=== PATIENT | female | born 1965 | race Caucasian/White ===

== ENCOUNTER 2018-06-06 12:07 | Observation (INO) ==
[2018-06-06] MEDS ORDERED: ONDANSETRON HCL/PF 2 MG/ML VIAL IV ONE (12:17)
[2018-06-06] MEDS ORDERED: MORPHINE SULFATE 2 MG/ML DISP.SYRIN IV ONE ×2 (12:18→14:21)
[2018-06-06 12:36] LABS: Hemoglobin 14.4 gm/dL (12.5-16.0); Mean Cell Volume 92.1 fl (78-100); Mean Corpuscular Hemoglobin 30.8 pg (27-31); Mean Corpuscular Hgb Conc 33.5 g/dl (32-36); Mean Platelet Volume 9.2 fl (8-12.5); Neutrophil # 9.1 K/mm3 (1.3-6.0); Platelet Count 376 K/mm3 (150-450); Red Blood Count 4.67 M/mm3 (4.2-5.4); White Blood Count 12.8 K/mm3 (4.0-10.5)
--- NOTE | 2018-06-06 12:40 | ERNOTE ---
Abdominal HPI - Narrative Date of Service: 06/06/18 - General Chief Complaint: Abdominal Pain Time Seen by Provider: 06/06/18 12:08 Source: patient Exam Limitations: no limitations - Immun/Allergies/Home Medications Immunizatons: IMMUNIZATION HX Immunizations Up to Date Yes History of Influenza Vaccine Yes Hx Pneumococcal Vaccination No Allergies/Adverse Reactions: Allergies lisinopril Allergy (Mild, Verified 06/06/18 12:19) Hives Home Medications: HOME MEDICATIONS atenolol 25 mg tablet 25 mg PO DAILY #30 tab 12/25/17 [Last Taken Unknown] hydrochlorothiazide 50 mg tablet 50 mg PO DAILY #90 tab 02/25/18 [Last Taken 06/06/18] acetaminophen 300 mg-codeine 30 mg tablet 1 tab PO Q6H PRN #30 tab 03/27/18 [Last Taken Unknown] alprazolam 0.25 mg tablet 0.25 mg PO BID-TID PRN #30 tab 04/14/18 [Last Taken 06/05/18] Cyclobenzaprine HCl 10 mg PO HS PRN 06/06/18 [Last Taken 06/05/18] - Pain Score Pain Score #1 Pain Score: 8 Abdominal Pain Onset Location: epigastric, suprapubic Pain Radiation: back - History of Present Illness Narrative: The patient is a 53 year old female who presents for abdominal pain which has been present since last evening. There are associated symptoms of abdominal distention and nausea. The patient reports epigastric and suprapubic pain, 8/10. There are no alleviating factors. There are no aggravating factors. Previous treatments have included: Magnesium Citrate and Tylenol #3 without improvement. The past medical history includes: HTN and constipation. The social history is positive for former smoker and social alcohol use. The patient has had no ill contacts. Patient denies history of colonoscopy. Patient states it had been 1 week prior to last BM so she took Mag Citrate on Saturday with bowel movement in the evening. Patient states yesterday she began having abrupt pain with intermittent increased severity of pain. Timing: constant, intermittent - severity Quality: severe, aching, cramping Activities at Onset: none Modifying Factors - (Worsens): Present: coughing, movement Associated Symptoms: Present: back pain, nausea, shortness of breath, swelling/mass in abdomen. Absent: diarrhea-gross blood, diarrhea-mucous, fever/chills, vomiting Prior Abdominal Problems: Present: none Review of Systems - Review of Systems Constitutional: Present: fatigue. Absent: fever, chills EYE: Present: no symptoms reported ENT: Present: no symptoms reported. Absent: ear pain, nasal drainage, sore throat Respiratory: Present: shortness of breath. Absent: cough Cardiology: Present: no symptoms reported. Absent: chest pain Gastrointestinal/Abdominal: Present: nausea, constipation, abdominal pain. Absent: vomiting, diarrhea Genitourinary: Present: no symptoms reported. Absent: frequency, dysuria, decreased urinary output Musculoskeletal: Present: back pain Skin: Present: no symptoms reported. Absent: rash Neurological: Present: no symptoms reported Endocrine: Present: no symptoms reported Hematologic/Lymphatic: Present: no symptoms reported Psych: Present: no symptoms reported All Other Systems: All systems neg except as marked Medical History (Last Reviewed 06/06/18 @ 12:37 by OREN Nur) Constipation Onset Date: Unknown Hypertension Onset Date: Unknown Fracture of leg Onset Date: Unknown right leg fracture Surgical History: Surgical History (Last Reviewed 06/06/18 @ 12:37 by OREN Nur) History of section Onset Date: Unknown History of right knee surgery Onset Date: Unknown History of tonsillectomy Onset Date: Unknown Family History: Family History (Last Reviewed 06/06/18 @ 12:37 by OREN Nur) Father Cancer lung Mother Hypertension Social History: Preferred Language Portuguese Do you have any latter day or No cultural preference? Smoking Status Former smoker Have you smoked in the past 12 No months Do you dip or chew tobacco No Alcohol Use occasionally Drug Use none (Last Updated 02/03/18 @ 15:53 by Melissa Hernandez MD) No Social History Section defined Physical Exam - Physical Exam General Appearance: Present: wd/wn, alert, moderate distress Head Exam: Present: normal inspection, no evidence of injury Eye Exam: Normal inspection: bilateral Ears, Nose, Throat: Present: normal ENT inspection, normal pharynx Neck: Present: normal inspection, nontender Respiratory: Present: no respiratory distress, normal breath sounds, no accessory muscle use, lungs clear Cardiovascular/Chest: Present: regular rate, rhythm, no murmur Gastrointestinal/Abdominal: Present: soft, no organomegaly, tenderness - epigastric, LUQ, suprapubic, abnormal bowel sounds - hyperactive, distended - diffuse. Absent: guarding, mass Neurological Exam: Present: alert, oriented, normal mood/affect Skin Exam: Present: normal color, warm/dry Progress - Date and Time Seen: Date and Time: 06/06/18 13:23 Discussed results with patient, will proceed with CT abdomen and pelvis. 06/06/18 15:27 Discussed results with , will present to evaluate patient due to acute appendicitis with abscess and ileus. - Results and Orders Patient's Lab Results:: I have reviewed the patient's lab results. - Vital Signs Patient's Vital Signs:: I have reviewed the patient's vital signs. Vital Signs: Vital Signs 06/06/18 12:13 Temperature 35.5 C L Pulse Rate 80 Respiratory Rate 16 Blood Pressure 154/118 H O2 Sat by Pulse Oximetry 99 - X-Ray X-Ray #1 X-Ray: abdomen Interpretation: Reviewed by me X-ray Comments: X-RAY REPORT ~[id number] RAD/Abdomen Flat W/ Upright *~ Exam Date: 06/06/2018 12:17 Ordering Physician: Elva LOTT HISTORY: Abdominal Pain Additional history from technologist: abdominal pain started in the night; bloating; back and abdominal pain; takes mirilax daily; no prior abdominal surgeries TECHNIQUE: AP upright and supine views of the abdomen were obtained, total of 4 images. COMPARISONS: None available. FINDINGS: Abdomen Flat W/ Upright *: No subdiaphragmatic free air. There is distention of the small and large bowel loops diffusely throughout the abdomen. Scattered differential air-fluid levels are noted. No definite pathologic calcifications apparent. There is a T-shaped radiodensity within the pelvis most likely an IUD. Osseous structures are intact. IMPRESSION: Abnormal but nonspecific bowel gas pattern. Electronically signed by Carmen Jimenez M.D.. - CT/Ultrasound CT/Ultrasound Narrative: X-RAY REPORT ~[id number] CT/CT Abdomen/Pelvis W/C *~ Exam Date: 06/06/2018 13:22 Ordering Physician: Elva LOTT HISTORY/INDICATION: abdominal pain, distention Additional history from technologist: PT STATES SHE HAS HAD SHARP ABD PAINS X 1 DAY. BLOATING TECHNIQUE: Contrast enhanced CT images of the abdomen during portal venous phase obtained. Excretory phase images of the abdomen and pelvis were also obtained. Coronal reconstructions were also submitted. Oral contrast material was given. Dose reduction techniques using the adjustment of the mA and/or kV according to patient size and/or use of AEC or iterative reconstruction were used in the acqu isition of this exam. COMPARISON: None available. CT Abdomen/Pelvis W/C * ABDOMEN: Lungs: Mild dependent atelectasis present. Visualized portions of the heart grossly normal. Liver: No focal mass or intrahepatic ductal dilation apparent. Gallbladder: The gallbladder appears to be grossly unremarkable. Noncalcified gallstones would be difficult to exclude, and an ultrasound of the gallbladder should be considered if there is a concern for cholecystitis or biliary colic. Pancreas: The pancreas appears to be normal in appearance. Spleen: The spleen is unremarkable. Adrenal glands: Unremarkable without focal finding. Kidneys: Normal appearance without focal mass or hydronephrosis. There is a tiny subcentimeter cortical hypodensity in the interpolar region of the right kidney most likely a tiny cyst. Aorta: Mild calcified atherosclerotic plaques noted. Largest transaxial diameter of the infrarenal segment is 1.7 cm. Retroperitoneum: No pathologic size lymphadenopathy or mass within the retroperitoneum is seen. Stomach: Unopacified and nondistended stomach grossly unremarkable. Cannot exclude small mucosal lesion or potential gastritis. Clinical correlation is recommended. Small bowel: There is distention of the proximal small bowel loops, without definite signs of a focal transition point. The distal small bowel is reached by enteric contrast. Overall pattern suggestive of ileus. Colon: The colon appears to be grossly unremarkable. There is a blind-ending tubular structure seen on series 4 image [id number] in the right lower quadrant, which appears to be distended with fluid with surrounding inflammatory changes. Adjacent to the tip of this structure, on series 4 image 48, there may be a tiny 13 x 9 mm fluid collection (see also series 5 image 19). There is no definite signs of extraluminal gas. Note that the cecum is somewhat high and more midline in position, and not in the typical right lower quadrant, which may be developmental/congenital. Abdominal wall: Unremarkable without focal mass or hernia. No evidence for intraperitoneal free air. PELVIS: Contrast-filled portions of the urinary bladder demonstrates no focal finding. No definite signs of pelvic lymphadenopathy or masses are noted. Patient has a T-shaped IUD centrally located within the uterus. No evidence of free pelvic fluid noted. Bones: Osseous structures appear intact without obvious destructive changes. Patient has old right-sided rib fractures. IMPRESSION: 1. CT findings concerning for acute appendicitis, with a potential 13 mm tiny abscess adjacent to the tip of the abnormal appendix. Atypical location of the cecum as above. 2. Additional comments are as above. Ordering provider OREN Nur was informed regarding the above results by telephone on 06/06/2018 3:23 PM. Electronically signed by Carmen Jimenez M.D.. - Progress/Reassessment Chief Complaint: Abdominal Pain Departure Clinical Impression: Acute appendicitis Qualifiers: Acute appendicitis type: with generalized peritonitis Appendicitis gangrene presence: without gangrene Appendicitis perforation presence: unspecified whether perforation present Appendicitis abscess presence: with abscess Qualified Code(s): K35.21 - Acute appendicitis with generalized peritonitis, with abscess - Departure Disposition: Still a patient Condition: Fair Referrals: Melissa Hernandez MD [Primary Care Provider] -
[2018-06-06 12:51] LABS: Albumin * 4.2 gm/dl (3.4-5.0); Anion Gap 13.6 mmol/L (6.8-13.8); BUN/Creatinine Ratio 21.7 (9.0-21.6); Bilirubin, Total 0.7 mg/dL (0.0-1.1); Ca. Corrected For Albumin 9.4 mg/dL (8.4-10.2); Calcium * 9.9 mg/dL (7.9-10.9); Carbon Dioxide 25.7 mmol/L (24-32.6); Potassium 3.3 mmol/L (3.4-4.6); Total Protein 8.3 gm/dL (6.2-8.2)
[2018-06-06 13:04] LABS: Urine Bilirubin Negative (NEGATIVE); Urine Blood 50 /ul (NEGATIVE); Urine Ketone 5 mg/dL (NEGATIVE); Urine Nitrite Negative (NEGATIVE); Urine Protein Negative (NEGATIVE); Urine Specific Gravity 1.015 SP.GR. (1.005-1.010); Urine Urobilinogen Normal (NORMAL)
[2018-06-06 13:14] LABS: Urine Appearance Clear (CLEAR); Urine Bacteria None Seen; Urine Color Yellow; Urine RBC None Seen /hpf (0-5); Urine WBC None Seen /hpf (0-5)
[2018-06-06] MEDS ORDERED: DIATRIZOATE MEGLUMINE, SODIUM 30 ML BTL PO ONE (13:22)
[2018-06-06] MEDS ORDERED: CEFOXITIN SODIUM 1 GM in DEXTROSE 5 % IN WATER 100 ML IV PRN ×2 (15:50)
--- NOTE | 2018-06-06 16:04 | HP ---
Chief Complaint - Chief Complaint Date of Service: 06/06/18 Time of Service: 16:00 Chief Complaint: Acute appendicitis History of Present Illness: Renetta is a very pleasant 53-year-old female who developed abdominal pain last night around 10 PM. Her pain is diffuse throughout the abdomen. She came into the emergency room and was evaluated. He had a CT scan which demonstrated acute appendicitis with a small perforation. She has a chronic history of constipation. She took a bottle of mag citrate earlier this week, this produced a small bowel movement. She had some relief with this. However, the pain started last night at 10 PM is different than her constipation pain. Medical History (Last Reviewed 06/06/18 @ 12:37 by OREN Nur) Constipation Onset Date: Unknown Hypertension Onset Date: Unknown Fracture of leg Onset Date: Unknown right leg fracture Surgical History: Surgical History (Last Reviewed 06/06/18 @ 12:37 by OREN Nur) History of section Onset Date: Unknown History of right knee surgery Onset Date: Unknown History of tonsillectomy Onset Date: Unknown Family History: Family History (Last Reviewed 06/06/18 @ 12:37 by OREN Nur) Father Cancer lung Mother Hypertension Social History: Preferred Language Greek Do you have any caodaism or No cultural preference? Smoking Status Former smoker Have you smoked in the past 12 No months Do you dip or chew tobacco No Alcohol Use occasionally Drug Use none (Last Updated 02/03/18 @ 15:53 by Melissa Hernandez MD) No Social History Section defined Review Of Systems (GEN) - Review of Systems Generalized/Overall Review: Present: Malaise EENTM: Present: No Symptoms Reported Respiratory: Present: No Symptoms Reported Cardiac: Present: No Symptoms Reported Abdominal: Present: Nausea, Abdominal Pain, Constipation Genitourinary: Present: No Symptoms Reported Musculoskeletal: Present: No Symptoms Reported Neurological: Present: No Symptoms Reported Skin: Present: No Symptoms Reported Endocrine: Present: No Symptoms Reported Immunizations: IMMUNIZATION HX Immunizations Up to Date Yes History of Influenza Vaccine Yes Hx Pneumococcal Vaccination No Allergies/Adverse Reactions: Allergies Allergy/AdvReac Type Severity Reaction Status Date / Time lisinopril Allergy Mild Hives Verified 06/06/18 12:19 Home Medications: HOME MEDICATIONS atenolol 25 mg tablet 25 mg PO DAILY #30 tab 12/25/17 [Last Taken Unknown] hydrochlorothiazide 50 mg tablet 50 mg PO DAILY #90 tab 02/25/18 [Last Taken 06/06/18] acetaminophen 300 mg-codeine 30 mg tablet 1 tab PO Q6H PRN #30 tab 03/27/18 [Last Taken Unknown] alprazolam 0.25 mg tablet 0.25 mg PO BID-TID PRN #30 tab 04/14/18 [Last Taken 06/05/18] Cyclobenzaprine HCl 10 mg PO HS PRN 06/06/18 [Last Taken 06/05/18] Exam - Exam Vital Signs: Vital Signs - Last Taken Temp 35.5 C L 06/06/18 12:13 Pulse 76 06/06/18 13:45 Resp 16 06/06/18 13:45 BP 144/94 H 06/06/18 13:45 Pulse Ox 98 06/06/18 13:45 Constitutional: Present: Alert, Oriented x3, Cooperative ENT Exam: Present: hearing grossly normal Neck: Present: supple Back Exam: Present: normal inspection Breasts: Present: Exam deferred Respiratory: Present: lungs clear, normal breath sounds, no respiratory distress, no accessory muscle use Cardiovascular/Chest: Present: regular rate, rhythm Abdomen: Present: Normal bowel sounds, soft, tender /Rectal: Present: Exam deferred Extremity: Present: normal range of motion Skin Exam: Present: normal color Neurologic: Present: funds transfer clerk II-XII nml as tested Appearance: Present: appropriate appearance Eye contact: Present: cooperative, good eye contact Thoughts: Present: normal thought pattern Diagnostic Studies: Abnormal Lab Results 06/06/18 06/06/18 06/06/18 Range/Units 12:30 12:30 12:57 WBC 12.8 H (4.0-10.5) K/mm3 Neutrophils # 9.1 H (1.3-6.0) K/mm3 Potassium 3.3 L (3.4-4.6) mmol/L BUN/Creatinine Ratio 21.7 H (9.0-21.6) Total Protein 8.3 H (6.2-8.2) gm/dL Urine Blood 50 H (NEGATIVE) /ul Laboratory Results WBC 12.8 K/mm3 (4.0-10.5) H 06/06/18 12:30 RBC 4.67 M/mm3 (4.2-5.4) 06/06/18 12:30 Hgb 14.4 gm/dL (12.5-16.0) 06/06/18 12:30 Hct 43.0 % (37.0-47.0) 06/06/18 12:30 MCV 92.1 fl (78-100) 06/06/18 12:30 MCH 30.8 pg (27-31) 06/06/18 12: MCHC 33.5 g/dl (32-36) 06/06/18 12:30 RDW 13.0 % (11.5-14.0) 06/06/18 12:30 Plt Count 376 K/mm3 (150-450) 06/06/18 12: MPV 9.2 fl (8-12.5) 06/06/18 12:30 Immature Gran % (Auto) 0.20 % (0.001-0.429) 06/06/18 12: Immature Gran # (Auto) 0.03 K/mm3 (0.000-0.0310) 06/06/18 12:30 Neutrophils % 71.0 % (42-75.0) 06/06/18 12:30 Lymphocytes % 20.4 % (20-51) 06/06/18 12:30 Monocytes % 7.8 % (0.0-9) 06/06/18 12: Eosinophils % 0.3 % (0.0-3.0) 06/06/18 12: Basophils % 0.3 % (0.0-1.0) 06/06/18 12: Nucleated RBC % 0.0 k/mm3 (0-1) 06/06/18 12:30 Neutrophils # 9.1 K/mm3 (1.3-6.0) H 06/06/18 12:30 Lymphocytes # 2.62 k/mm3 (1.5-3.5) 06/06/18 12:30 Monocytes # 1.0 k/mm3 (0.0-1.0) 06/06/18 12: Eosinophils # 0.0 k/mm3 (0.0-0.7) 06/06/18 12: Absolute Basophils 0.0 k/mm3 (0.0-0.1) 06/06/18 12:30 ESR 4 mm/hr (0-15) 06/06/18 12:30 Sodium 133 mmol/L (132-142) 06/06/18 12:30 Plasma Sodium 133 mmol/L (130-142) 06/06/18 12:30 Potassium 3.3 mmol/L (3.4-4.6) L 06/06/18 12:30 Chloride 97 mmol/L (97-106) 06/06/18 12:30 Carbon Dioxide 25.7 mmol/L (24-32.6) 06/06/18 12:30 Anion Gap 13.6 mmol/L (6.8-13.8) 06/06/18 12:30 BUN 15 mg/dL (3-23) 06/06/18 12:30 Creatinine 0.69 mg/dL (0.4-1.4) 06/06/18 12:30 Est GFR (Non-Af Amer) 94 mL/min (60-130) 06/06/18 12:30 BUN/Creatinine Ratio 21.7 (9.0-21.6) H 06/06/18 12:30 Random Glucose 87 mg/dL (70-110) 06/06/18 12:30 Calcium 9.9 mg/dL (7.9-10.9) 06/06/18 12:30 Calcium Adj for Albumin 9.4 mg/dL (8.4-10.2) 06/06/18 12:30 Total Bilirubin 0.7 mg/dL (0.0-1.1) 06/06/18 12:30 AST 35 U/L (0-48) 06/06/18 12:30 ALT 46 U/L (19-67) 06/06/18 12:30 Alkaline Phosphatase 110 U/L (50-170) 06/06/18 12:30 C-Reactive Prot, Quant Less than 0.2 mg/dL (0.0-0.9) 06/06/18 12:30 Total Protein 8.3 gm/dL (6.2-8.2) H 06/06/18 12:30 Albumin 4.2 gm/dl (3.4-5.0) 06/06/18 12:30 Amylase 56 U/L (25-115) 06/06/18 12:30 Lipase 123 U/L (73-393) 06/06/18 12:30 Serum HCG, Qual Negative (NEGATIVE) 06/06/18 12:30 Urine Color Yellow 06/06/18 12:57 Urine Appearance Clear (CLEAR) 06/06/18 12:57 Urine pH 6.0 pH (5.0-7.0) 06/06/18 12:57 Ur Specific [place] 1.015 SP.GR. (1.005-1.010) 06/06/18 12:57 Urine Protein Negative mg/dL (NEGATIVE) 06/06/18 12:57 Urine Glucose (UA) Negative mg/dL (NEGATIVE) 06/06/18 12:57 Urine Ketones 5 mg/dL (NEGATIVE) 06/06/18 12:57 Urine Blood 50 /ul (NEGATIVE) H 06/06/18 12:57 Urine Nitrate Negative (NEGATIVE) 06/06/18 12:57 Urine Bilirubin Negative mg/dl (NEGATIVE) 06/06/18 12:57 Urine Urobilinogen Normal EU/dl (NORMAL) 06/06/18 12:57 Ur Leukocyte Esterase Negative /ul (NEGATIVE) 06/06/18 12:57 Urine RBC None seen /hpf (0-5) 06/06/18 12:57 Urine WBC None seen /hpf (0-5) 06/06/18 12:57 Ur Epithelial Cells None seen /hpf (0-5) 06/06/18 12:57 Urine Bacteria None seen (NONE) 06/06/18 12:57 Urine Culture Comments No culture indicated 06/06/18 12:57 Assessment/Plan - Assessment/Plan (1) Acute appendicitis Problem: Acute Plan - Plan Plan: Patient will be taken to the operating room emergently for laparoscopic appendectomy. She'll be given a dose of antibiotics in the emergency room. Risks and benefits of the procedure were discussed with the patient including bleeding, infection, damage to other organs, and need for reoperation. She voices understanding. She would like to proceed. Thank you for allowing me to participate in the care of your patient.
--- NOTE | 2018-06-06 16:19 | ANES ---
Anesthesia Pre Procedure Eval Vitals/Labs: Last Vital Signs Temp 35.5 C L 06/06/18 12:13 Pulse 76 06/06/18 13:45 Resp 16 06/06/18 13:45 BP 144/94 H 06/06/18 13:45 Pulse Ox 98 06/06/18 13:45 HOME MEDICATIONS atenolol 25 mg tablet 25 mg PO DAILY #30 tab 12/25/17 [Last Taken Unknown] hydrochlorothiazide 50 mg tablet 50 mg PO DAILY #90 tab 02/25/18 [Last Taken 06/06/18] acetaminophen 300 mg-codeine 30 mg tablet 1 tab PO Q6H PRN #30 tab 03/27/18 [Last Taken Unknown] alprazolam 0.25 mg tablet 0.25 mg PO BID-TID PRN #30 tab 04/14/18 [Last Taken 06/05/18] Cyclobenzaprine HCl 10 mg PO HS PRN 06/06/18 [Last Taken 06/05/18] Allergies/Adverse Reactions: Allergies Allergy/AdvReac Type Severity Reaction Status Date / Time lisinopril Allergy Mild Hives Verified 06/06/18 12:19 - Planned Procedure Planned Procedure: abd swollen and abd pain and back pain Medication List Reviewed:: Yes Allergies Verified: Yes Medical History (Last Reviewed 06/06/18 @ 16:15 by Gary Cheng CRNA) Constipation Onset Date: Unknown Hypertension Onset Date: Unknown Fracture of leg Onset Date: Unknown right leg fracture Surgical History (Last Reviewed 06/06/18 @ 16:15 by Gary Cheng CRNA) History of section Onset Date: Unknown History of right knee surgery Onset Date: Unknown History of tonsillectomy Onset Date: Unknown Family History (Last Reviewed 06/06/18 @ 16:15 by Gary Cheng CRNA) Father Cancer lung Mother Hypertension - Family Anesthesia History Family History:: no untoward family reactions to anesthesia, no familial bleeding tendencies, no family history of clotting disorders, no family history of premature - Airway/Neck/Teeth Within Normal Limits:: Yes Neck Exam: full range of motion - however does have cervical issues with radicular symptoms Mallampatti Score: 1 Thyromental (T-M) distance: > 6 cm Mandibulo Hyoid distance: > 3 cm - Respiratory Respiratory Physical: lungs clear Smoking Status: Former smoker - quit a few years ago Sleep Apnea currently treated: No Sleep Apnea by current assessment: No - Cardiovascular Cardiac History: hypertension Tolerate Activity: Fair Heart Sounds: S1 & S2, Regular - Anesthesia Assessment and Plan ASA Class: PS, II Anesthesia Type Plan: General ET Planned difficult intubation/equipment available: No
--- NOTE | 2018-06-06 16:23 | OR ---
Operative Report - Dictated Report Narrative: Date of Service: 06/06/18 Procedure: laparoscopic appendectomy Pre-procedure diagnosis: acute appendicitis, perforated Post-procedure diagnosis: non perforated Surgeon: Dr. Leanne Olsen Anesthesia: general Indication for procedure: Renetta is a very pleasant 53-year-old female who has abdominal pain, and was found to have perforated acute appendicitis on CT scan. Description of procedure: After appropriate informed consent was obtained patient was taken to the operating room, placed in the supine position. General anesthesia was achieved. The RN placed a Zuniga catheter. The patient was prepped and draped in the usual sterile fashion. A 5 mm periumbilical incision was made, hemostat was used to dissect down to the fascia. A Veress needle was inserted, a saline drop test was performed which was satisfactory. The abdomen was insufflated to 15 mmHg. A 5mm blunt trocar was placed at the umbilicus. The camera was inserted, there was no evidence of a trocar injury. A 12 mm trocar was placed in the left lower quadrant of the abdomen. A 5 mm trocar was placed in the suprapubic region. The patient was placed in a head down, rotated left position, to facilitate exposure. The appendix was identified, it appeared consistent with acute appendicitis. A window was made in the mesoappendix. The 45 mm echelon stapler with the white load was placed across the base of the appendix. There was good hemostasis. The echelon 45 mm stapler with a white load was then placed across the mesoappendix. There was good hemostasis. The appendix was removed through an Endo Catch bag. The abdomen was inspected and the staple lines were intact, with good hemostasis. The remainder of the abdomen was inspected and was satisfactory. The 12 mm trocar site was closed with an 0 Vicryl suture using a PMI device. The abdomen was desufflated. Local anesthetic was injected. The incisions were closed with inverted interrupted 4- 0 Monocryl sutures. Mastisol and Steri-Strips were applied. The patient tolerated the procedure well and was transported to the PACU in satisfactory condition. The appendix was not ruptured. There was a small amount of serous fluid in the pelvis that was suctioned. Estimated blood loss: minimal Complications: none Specimens to pathology: appendix Disposition: The patient will be admitted to the floor for observation.
[2018-06-06] MEDS ORDERED: RINGER'S SOLUTION,LACTATED 1,000 ML IV PRN (17:18)
[2018-06-06] MEDS ORDERED: BUPIVACAINE HCL/PF 30 ML VIAL IJ ONE (17:28)
--- NOTE | 2018-06-06 17:50 | ANES ---
Post Anesthesia Discharge - Transfer of Care Transfer of Care handoff given to nurse: Yes - Discharge from PACU Discharge from PACU when meets criteria: Yes - Comfortable.
--- NOTE | 2018-06-06 18:20 | ANES ---
Post Anesthesia Assessment - Vital Signs Vitals: Last Vital Signs Temp 36.6 C 06/06/18 18:15 Pulse 77 06/06/18 18:15 Resp 14 06/06/18 18:15 BP 144/97 H 06/06/18 18:15 Pulse Ox 97 06/06/18 18:15 Airway Patency: Normal - Mental Status Level Of Consciousness: Awake, Alert, Appropriate - Pain Level Pain Score: 6 - N/V Assessment Nausea/Vomiting Presence: None Dehydration:: No
[2018-06-06] MEDS ORDERED: ONDANSETRON HCL/PF 2 MG/ML VIAL IV PRN (18:34)
[2018-06-06] MEDS ORDERED: ACETAMINOPHEN 325 MG TABLET PO PRN (18:34)
[2018-06-06] MEDS: POTASSIUM CHLORIDE 20 MEQ in DEXTROSE 5%-0.5 NORMAL SALINE 990 ML IV SCH (19:27)
[2018-06-06] MEDS: HYDROcodone/ACETAMINOPHEN 1 EACH TABLET PO PRN (19:36)
[2018-06-07] MEDS: HYDROcodone/ACETAMINOPHEN 1 EACH TABLET PO PRN ×2 (02:20→08:33)
[2018-06-07] MEDS: POTASSIUM CHLORIDE 20 MEQ in DEXTROSE 5%-0.5 NORMAL SALINE 990 ML IV SCH (05:32)
--- NOTE | 2018-06-07 06:13 | DS ---
Description of Stay: She was admitted through the emergency room for abdominal pain. She was found to have acute appendicitis. She was taken to the OR for laparoscopic appendectomy. Her recovery was uneventful. She will be ready for discharge later today. Procedures Performed: see notes below List Procedures: lap appy Results and Findings: Lab Pending Results 06/06/18 12:30: WBC 12.8 H, RBC 4.67, Hgb 14.4, Hct 43.0, MCV 92.1, MCH 30.8, MCHC 33.5, RDW 13.0, Plt Count 376, MPV 9.2, Immature Gran % (Auto) 0.20, Immature Gran # (Auto) 0.03, Neutrophils % 71.0, Lymphocytes % 20.4, Monocytes % 7.8, Eosinophils % 0.3, Basophils % 0.3, Nucleated RBC % 0.0, Neutrophils # 9.1 H, Lymphocytes # 2.62, Monocytes # 1.0, Eosinophils # 0.0, Absolute Basophils 0.0 06/06/18 12:30: Sodium 133, Plasma Sodium 133, Potassium 3.3 L, Chloride 97, Carbon Dioxide 25.7, Anion Gap 13.6, BUN 15, Creatinine 0.69, Est GFR (Non-Af Amer) 94, BUN/Creatinine Ratio 21.7 H, Random Glucose 87, Calcium 9.9, Calcium Adj for Albumin 9.4, Total Bilirubin 0.7, AST 35, ALT 46, Alkaline Phosphatase 110, Total Protein 8.3 H, Albumin 4.2, Amylase 56, Lipase 123 06/06/18 12:30: Serum HCG, Qual Negative 06/06/18 12:30: ESR 4 06/06/18 12:30: C-Reactive Prot, Quant Less than 0.2 06/06/18 12:57: Urine Color Yellow, Urine Appearance Clear, Urine pH 6.0, Ur Specific Fossil 1.015, Urine Protein Negative, Urine Glucose (UA) Negative, Urine Ketones 5, Urine Blood 50 H, Urine Nitrate Negative, Urine Bilirubin Negative, Urine Urobilinogen Normal, Ur Leukocyte Esterase Negative, Urine RBC None seen, Urine WBC None seen, Ur Epithelial Cells None seen, Urine Bacteria None seen, Urine Culture Comments No culture indicated Discharge Location: Home Disposition: Home self-care Condition: Good Discharge Activity: Activity as tolerated Discharge Diet: General/regular food Referrals: Melissa Hernandez MD [Primary Care Provider] - Complete Home Medications List: Complete Home Medication List: atenolol 25 mg tablet 25 mg PO DAILY #30 tab 12/25/17 hydrochlorothiazide 50 mg tablet 50 mg PO DAILY #90 tab 02/25/18 acetaminophen 300 mg-codeine 30 mg tablet 1 tab PO Q6H PRN #30 tab 03/27/18 alprazolam 0.25 mg tablet 0.25 mg PO BID-TID PRN #30 tab 04/14/18 Cyclobenzaprine HCl 10 mg PO HS PRN 06/06/18 Acetaminophen [Tylenol] 650 mg PO Q6H PRN tab 06/07/18 HYDROcodone/ACETAMINOPHEN [Humphreys 5-325] 2 ea PO Q6H PRN tab 06/07/18
[2018-06-07 10:37] VITALS: BP 131/80
== END 2018-06-07 11:00 | disposition home or self-care (01) ==
LOC: ER 12:07 → AMB 16:28 → MS 16:28
PROVIDERS: ADMIT Surgery; ATTEND Surgery
DX: K35.21 Acute appendicitis with generalized peritonitis, with abscess
CPT/HCPCS: 36415; 74019; 74020; 74177; 80053; 81001; 82150; 83690; 84703; 85025; 85652; 86140; 88304; 96365; 96366; 96375; 99285; G0378; J2405